=== PATIENT | male | born 2000 | race Caucasian/White ===

== ENCOUNTER 2020-09-04 10:47 | Outpatient (REF) | payer OTHER, SELFPAY ==
[2020-09-04 12:13] LABS: Hematocrit 47.1 % (42-52); Hemoglobin 15.4 g/dl (14.0-18.0); Mean Corpuscular HGB Conc 32.7 g/dl (31.0-36.0); Mean Corpuscular Hemoglobin 30.9 pg (27.0-33.0); Mean Corpuscular Volume 94.6 fL (80-98); Mean Platelet Volume 9.9 fL (9.4-12.4); Platelet Count 266 X10*3/uL (160-400); Red Blood Count 4.98 X10*6/uL (4.60-5.80); Red Cell Distribution Width 12.3 % (11.0-16.0); White Blood Count 6.8 X10*3/uL (4.8-10.8)
[2020-09-04 12:53] LABS: Alanine Aminotransferase 19 U/L (0-40); Albumin Level 4.5 g/dL (3.5-5.0); Alkaline Phosphatase 54 U/L (39-117); Anion Gap 12 (12-20); Aspartate Amino Transferase 19 U/L (5-37); Bilirubin Direct 0.3 mg/dL (0.0-0.5); Bilirubin Total 0.8 mg/dL (0.0-1.0); Blood Urea Nitrogen 14 mg/dL (9-16); Calcium 9.5 mg/dL (8.4-10.2); Carbon Dioxide 30 mmol/L (22-29); Chloride 102 mmol/L (96-108); Cholesterol 107 mg/dL; Estimated Glomerular Filt Rate > 60; Glucose Fasting 79 mg/dL (60-99); HDL Cholesterol 43 mg/dL; LDL Cholesterol Calculated 55 mg/dl; Potassium 4.3 mmol/l (3.3-5.1); Sodium 140 mmol/L (135-145); Total Protein 7.2 g/dL (6.5-8.0); Triglycerides 45 mg/dL
[2020-09-04 13:14] LABS: TSH reflex Free T4 1.07 mIU/mL (0.32-4.0)
[2020-09-05 03:51] LABS: HBS Num1 0.52 mIU/mL (0-7.99); HBc Num1 0.11 S/CO (0.00-0.79); HBsAGNum1 0.27 S/CO (0.00-0.99); HIV AB/AG Nonreactive (Nonreactive); HIV Num 1 0.05 S/CO (0.00-0.99); Hepatitis B Core Antibody Nonreactive (Nonreactive); Hepatitis B Surface Antigen Negative (Negative); ~Hepatitis A Antibody IgM Nonreactive (Nonreactive); ~Hepatitis B Surface Antibody NONREACTIVE (Nonreactive); ~Hepatitis C Antibody Nonreactive (Nonreactive)
[2020-09-05 15:42] LABS: C. trachomatis RNA TMA NOT DETECTED (NOT DETECTED); N. gonorrhoeae RNA TMA NOT DETECTED (NOT DETECTED)
== END 2020-09-04 10:48 | disposition home or self-care (01) ==
LOC: HO.WFDLDS 10:47
PROVIDERS: Visit Provider Hospitalist
DX: Z00.00 Encounter for general adult medical examination without abnormal findings (principal); L70.9 Acne, unspecified; Z11.3 Encounter for screening for infections with a predominantly sexual mode of transmission; Z11.8 Encounter for screening for other infectious and parasitic diseases; Z11.4 Encounter for screening for human immunodeficiency virus [HIV]; Z11.59 Encounter for screening for other viral diseases; Z13.220 Encounter for screening for lipoid disorders; Z13.29 Encounter for screening for other suspected endocrine disorder
CPT/HCPCS: 36415; 80048; 80061; 80076; 84443; 85027; 86704; 86706; 86709; 86803; 87340; 87389; 87491; 87591

== ENCOUNTER 2020-11-25 08:51 | Outpatient (REF) | payer OTHER, SELFPAY ==
[2020-11-25 10:24] LABS: Alanine Aminotransferase 26 U/L (0-40); Albumin Level 4.5 g/dL (3.5-5.0); Alkaline Phosphatase 64 U/L (39-117); Aspartate Amino Transferase 56 U/L (5-37); Bilirubin Direct 0.4 mg/dL (0.0-0.5); Cholesterol 110 mg/dL; HDL Cholesterol 38 mg/dL; LDL Cholesterol Calculated 65 mg/dl; Total Protein 7.2 g/dL (6.5-8.0); Triglycerides 35 mg/dL
== END 2020-11-25 08:52 | disposition home or self-care (01) ==
LOC: HO.LAB 08:51
PROVIDERS: PCP Hospitalist; Visit Provider Dermatology
DX: L70.0 Acne vulgaris (principal)
CPT/HCPCS: 36415; 80061; 80076

== ENCOUNTER 2021-01-13 10:24 | Outpatient (REF) | payer OTHER, SELFPAY ==
[2021-01-13 13:43] LABS: Alanine Aminotransferase 10 U/L (0-40); Albumin Level 4.3 g/dL (3.5-5.0); Alkaline Phosphatase 52 U/L (39-117); Aspartate Amino Transferase 19 U/L (5-37); Bilirubin Direct 0.3 mg/dL (0.0-0.5); Bilirubin Total 0.8 mg/dL (0.0-1.0); Cholesterol 136 mg/dL; HDL Cholesterol 38 mg/dL; LDL Cholesterol Calculated 89 mg/dl; Triglycerides 49 mg/dL
== END 2021-01-13 10:25 | disposition home or self-care (01) ==
LOC: HO.LAB 10:24
PROVIDERS: PCP Hospitalist; Visit Provider Physician Assistant Medical
DX: L70.0 Acne vulgaris (principal); Z79.899 Other long term (current) drug therapy
CPT/HCPCS: 36415; 80061; 80076

== ENCOUNTER 2021-02-10 09:26 | Outpatient (REF) | payer OTHER, SELFPAY ==
[2021-02-10 10:37] LABS: Alanine Aminotransferase 15 U/L (0-40); Albumin Level 4.3 g/dL (3.5-5.0); Alkaline Phosphatase 56 U/L (39-117); Aspartate Amino Transferase 21 U/L (5-37); Bilirubin Direct 0.2 mg/dL (0.0-0.5); Bilirubin Total 0.5 mg/dL (0.0-1.0); Cholesterol 120 mg/dL; HDL Cholesterol 39 mg/dL; Total Protein 7.2 g/dL (6.5-8.0)
[2021-02-10 10:46] LABS: LDL Cholesterol Calculated 76 mg/dl; Triglycerides 28 mg/dL
== END 2021-02-10 09:27 | disposition home or self-care (01) ==
LOC: HO.LAB 09:26
PROVIDERS: PCP Hospitalist; Visit Provider Physician Assistant Medical
DX: L70.0 Acne vulgaris (principal); Z79.899 Other long term (current) drug therapy
CPT/HCPCS: 36415; 80061; 80076

== ENCOUNTER 2021-04-01 09:39 | Outpatient (REF) | payer OTHER, SELFPAY ==
[2021-04-01 11:22] LABS: Alanine Aminotransferase 14 U/L (0-40); Albumin Level 4.4 g/dL (3.5-5.0); Alkaline Phosphatase 53 U/L (39-117); Aspartate Amino Transferase 18 U/L (5-37); Bilirubin Direct 0.3 mg/dL (0.0-0.5); Bilirubin Total 0.7 mg/dL (0.0-1.0); Cholesterol 143 mg/dL; HDL Cholesterol 38 mg/dL; LDL Cholesterol Calculated 93 mg/dl; Total Protein 7.1 g/dL (6.5-8.0); Triglycerides 64 mg/dL
== END 2021-04-01 09:40 | disposition home or self-care (01) ==
LOC: HO.LAB 09:39
PROVIDERS: PCP Hospitalist; Visit Provider Physician Assistant Medical
DX: L70.0 Acne vulgaris (principal); Z79.899 Other long term (current) drug therapy
CPT/HCPCS: 36415; 80061; 80076